=== PATIENT | female | born 1945 | race Caucasian/White ===

== ENCOUNTER → 2017-04-01 | Outpatient (CLI) | payer BC, OTHER ==
[~2017-04-01] MED LIST: BIOTPOW17 PO; CALC-51 PO; CHOL100010 PO; CINNAMON PO; COEN50CA12 PO; MAGN500C PEG; NXM/40 PO; VENL150C56 PO; VITAMIN B PO
[2017-04-01 12:49] LABS: BASO % 0.9 %; BASO ABS # 0.08 K/uL (0-0.2); COMPLETE YES; EOS % 5.9 %; HEMATOCRIT 41.8 % (37-47); IG% 0.1 %; LYMPH % 41.4 %; LYMPH ABS # 3.52 K/uL (1.2-3.4); MEAN CELL VOLUME 88.6 fL (80-100); MEAN CORPUSCULAR HGB CONC 32.8 g/dl (32-36); MEAN PLATELET VOLUME 9.8 fL (7.4-10.4); MONO % 5.9 %; NEUT % 45.8 %; PLATELET COUNT 350 K/uL (130-400); RED BLOOD COUNT 4.72 M/uL (4.2-5.4); WHITE BLOOD COUNT 8.51 K/uL (4.8-10.8)
[2017-04-01 13:17] LABS: ESTIMATED AVERAGE GLUCOSE 151 mg/dl; HA1C FLAG Normal (Normal)
[2017-04-01 14:59] LABS: CALCIUM 10.2 mg/dl (8.5-10.1)
[2017-04-01 15:07] LABS: ALT/SGPT 40 U/L (12-78); AST/SGOT 26 U/L (15-37); BLOOD UREA NITROGEN 11 mg/dl (7-18); BUN/CREATININE RATIO 12.6 (10-20); CARBON DIOXIDE 28 mmol/L (21-32); CHLORIDE 105 mmol/L (98-107); CHOLESTEROL 209 mg/dl (0-200); CREATININE 0.87 mg/dl (0.60-1.20); GLUCOSE 144 mg/dl (70-99); POTASSIUM 4.4 mmol/L (3.5-5.1); SODIUM 141 mmol/L (136-145); TRIGLYCERIDES 97 mg/dl (0-150); VERY LOW DENSITY LIPOPROT CALC 19 mg/dl
[2017-04-01 15:10] LABS: ALB/GLOB RATIO 0.9 (0.9-2); ALKALINE PHOSPHATASE 109 U/L (45-117); CHOLESTEROL/HDL RATIO 3.1; HDL CHOLESTEROL 67 mg/dl
== END | disposition home or self-care (01) ==
LOC: C.LABSPEC 12:26
PROVIDERS: ATTEND Internal Medicine
DX: E78.5 Hyperlipidemia, unspecified (principal); R53.83 Other fatigue; E11.9 Type 2 diabetes mellitus without complications

== ENCOUNTER → 2017-07-01 | Outpatient (CLI) | payer BC, OTHER ==
--- NOTE | 2017-07-02 15:59 | MAMMOGRAPHY REPORT ---
BILATERAL DIGITAL SCREENING MAMMOGRAM WITH CAD: 07/01/2017 CLINICAL HISTORY: Routine screening. Patient has no complaints. TECHNIQUE: Bilateral CC and MLO views were obtained. Current study was also evaluated with a Comput er Aided Detection (CAD) system. COMPARISON: Comparison is made to exams dated: 05/10/2015 mammogram, 05/16/2014 mammogram, 04/28/2014 joseph mogram, 04/26/2013 mammogram, 04/23/2012 mammogram - [facility], and 04/25/2009. BREAST COMPOSITION: There are scattered areas of fibroglandular density in both breasts. FINDINGS: A focal asymmetry in the right upper outer quadrant is stable on all available prior mammog ricardo dating back to at least 04/19/2009, therefore likely benign. No new suspicious mass, architectu ral distortion or cluster of microcalcifications is seen. IMPRESSION: ACR BI-RADS CATEGORY 1: NEGATIVE There is no mammographic evidence of malignancy. A 1 year screening mammogram is recommended. The pa tient will receive written notification of the results. Approximately 10% of breast cancers are not detected with mammography. A negative mammographic report should not delay biopsy if a clinically suggestive mass is present. Una Crum M.D. ay/:07/01/2017 15:51:57 Preventive Maintenance Coordinator: Randi LEE)(Ernesto)(BD), [facility] letter sent: Normal 1/2 BI-RADS Code: ACR BI-RADS Category 1: Negative
== END | disposition home or self-care (01) ==
LOC: C.MAMM 10:53
PROVIDERS: ATTEND Internal Medicine
DX: Z12.31 Encounter for screening mammogram for malignant neoplasm of breast (principal)

== ENCOUNTER → 2017-10-17 | Outpatient (CLI) | payer BC, OTHER ==
[2017-10-17 13:05] LABS: CREATININE RANDOM URINE 32.9 mg/dl
== END | disposition home or self-care (01) ==
LOC: C.LABSPEC 12:11
PROVIDERS: ATTEND Internal Medicine
DX: E11.9 Type 2 diabetes mellitus without complications (principal)

== ENCOUNTER → 2018-03-30 | Outpatient (CLI) | payer BC, OTHER | END | disposition home or self-care (01) | LOC: C.LABSPEC 17:13 | PROVIDERS: ATTEND Internal Medicine | DX: N39.0 Urinary tract infection, site not specified (principal) ==

== ENCOUNTER → 2018-07-02 | Outpatient (CLI) | payer BC, OTHER ==
--- NOTE | 2018-07-03 14:30 | MAMMOGRAPHY REPORT ---
BILATERAL DIGITAL SCREENING MAMMOGRAM TOMOSYNTHESIS WITH CAD: 07/02/2018 CLINICAL HISTORY: Routine screening. Patient has no complaints. TECHNIQUE: Breast tomosynthesis in addition to standard 2D mammography was performed. Current study w as also evaluated with a Computer Aided Detection (CAD) system. COMPARISON: Comparison is made to exams dated: 07/01/2017 mammogram, 05/10/2015 mammogram, 05/16/2014 joseph mogram, 04/28/2014 mammogram, 04/26/2013 mammogram, and 04/23/2012 mammogram - [facility]. BREAST COMPOSITION: There are scattered areas of fibroglandular density in both breasts. FINDINGS: No suspicious masses, calcifications, or areas of architectural distortion are noted in either breast . There has been no significant interval change compared to prior exams. IMPRESSION: ACR BI-RADS CATEGORY 1: NEGATIVE There is no mammographic evidence of malignancy. A 1 year screening mammogram is recommended.( 019) The patient will receive written notification of the results. Some breast cancers are not detected with mammography. A negative mammographic report should not nii y biopsy if a clinically suggestive mass is present. Julia Miller M.D. ah/:07/02/2018 15:47:36 Can Vacuum Tester: RT Sarah(R)(M)(BD), [facility] letter sent: Normal 1/2 BI-RADS Code: ACR BI-RADS Category 1: Negative
== END | disposition home or self-care (01) ==
LOC: C.MAMM 13:48
PROVIDERS: ATTEND Internal Medicine
DX: Z12.31 Encounter for screening mammogram for malignant neoplasm of breast (principal)

== ENCOUNTER 2023-09-22 18:55 | Observation (INO) ==
--- NOTE | 2023-09-22 19:02 | ED Triage Note ---
Date of Service September 22, 2023 History of Present Illness This patient was briefly evaluated while in triage. An abbreviated physical exam was performed. This patient is a 78-year-old Female who presents to the ED for evaluation of chest pain. Since 3pm today she has had acid reflux and history of similar. However, took some rollaids today and notes continuation of symptoms. Notes the pain will come and go. While driving here noted pain in L arm. Currenty wearing a heart monitor noting hx of "silent stroke". Went to [place] about 3 weeks ago. No fever, cough, dyspnea. COVID infection in April of this year. Physical Exam GENERAL: 78 year old female. In no acute distress. SKIN: No lesions or rashes. HEART: Regular rate and rhythm. LUNGS: Clear to auscultation. ABDOMEN: Bowel sounds normoactive. No guarding or rigidity. No tenderness of pal pation. NEURO: Alert and oriented. No deficits. MUSCULOSKELETAL: No deformities to inspection of the extremities. PSYCH: Patient is pleasant and answers all questions appropriately. Initial orders for labs and / or imaging were placed and patient was placed in the waiting area until a bed is available. Please see further documentation for the full ED course.
[2023-09-22 19:31] LABS: Basophils # (auto) 0.09 K/uL (0.00-0.20); Eosinophils # (auto) 0.45 K/uL (0.00-0.50); Eosinophils % (auto) 4.8 %; Hematocrit (blood only) 41.3 % (37.0-47.0); Hemoglobin 13.7 g/dl (12.0-16.0); Immature Granulocytes # (auto) 0.03 K/uL (0.01-0.20); Immature Granulocytes % (auto) 0.3 %; Lymphocytes # (auto) 3.82 K/uL (1.20-3.40); Lymphocytes % (auto) 40.8 %; Mean Corpuscular Hemoglobin 29.3 pg (25.0-34.0); Mean Corpuscular Hgb Conc 33.2 g/dL (32.0-36.0); Mean Corpuscular Volume 88.2 fL (80.0-100.0); Mean Platelet Volume 9.4 fL (9.4-12.4); Monocytes # (auto) 0.66 K/uL (0.11-0.59); Neutrophils # (auto) 4.32 K/uL (1.40-6.50); Neutrophils % (auto) 46.1 %; Platelet Count 326 K/uL (130-400); RDW Coefficient of Variation 13.2 % (11.5-14.5); RDW Standard Deviation 42.6 fL (36.4-46.3); Red Blood Count 4.68 M/uL (4.20-5.40); White Blood Count 9.37 K/ul (4.8-10.8)
[2023-09-22 19:46] LABS: Albumin Globulin Ratio 1.4 (0.9-2); BUN Creatinine Ratio 15.5 (10-20); Bilirubin,Total 0.5 mg/dl (0.2-1.0); Calcium 10.1 mg/dl (8.6-10.3); Creatinine Clr Calc Pharmacy 50.8 ml/min; Est GFR (African American) 77.2 ml/min; Est GFR (Non-African American) 66.6 ml/min; Globulin 2.8 gm/dl (2.5-4.0); Magnesium 1.7 mg/dl (1.7-2.4); Potassium 3.5 mmol/L (3.5-5.1); Total Protein 6.8 gm/dl (6.0-8.3)
[2023-09-22 19:53] LABS: Troponin I High Sensitivity 4.1 pg/ml (0-14)
[2023-09-22 20:02] LABS: Thyroid Stimulating Hormone 2.549 uIu/ml (0.300-4.500)
[2023-09-22 20:15] LABS: Partial Thromboplastin Time 28.8 Seconds (21.0-31.0); Prothrombin Time 10.7 Seconds (9.0-12.0)
[2023-09-22] MEDS ORDERED: ALUMINUM/MAGNESIUM SUSP 30 ML UDC PO STA (21:20)
[2023-09-22] MEDS ORDERED: NITROGLYCERIN SL 0.4 MG/TAB TAB SL STA (22:29)
[2023-09-22] MEDS ORDERED: ASPIRIN CHEW 324 MG PO STA (22:29)
[2023-09-22] MEDS ORDERED: SODIUM CHLORIDE 0.9% 1,000 ML IV SCH (22:30)
--- NOTE | 2023-09-22 22:38 | Emergency Department Note ---
History of Present Illness General Chief Complaint: Chest Pain Stated Complaint: ACID REFLEX, PAIN LT ARM, CHEST PAIN Time Seen by Provider: 09/22/23 21:01 History of Present Illness Provider Complaint: chest pain Onset (ago): day(s) 1 Duration: intermittent Onset: during rest Pain Location: substernal and epigastric Pain Radiation: LUE Severity: mild Maximum Pain Intensity: 3 Current Pain Intensity: 3 Quality: + aching and + dull Relieved By: + nothing Exacerbated By: + nothing Context: no recent illness, no recent surgery, no recent immobilization, no recent travel, no trauma/injury or no new medications Associated symptoms: no nausea, no vomiting, no diaphoresis, no dyspnea, no palpitations, no fever or no cough Home Medications Medication Instructions Recorded Confirmed Type bupropion HCl 200 mg tablet,12 hr 200 mg PO QAM 04/30/23 09/22/23 History sustained-release metformin 500 mg tablet,extended 1,000 mg (2 x 500 mg) PO DAILY 90 05/08/23 09/22/23 Rx release 24 hr days #180 tabs rosuvastatin 5 mg tablet (Crestor) 5 mg PO DAILY 30 days #90 tabs 06/09/23 09/22/23 Rx esomeprazole magnesium 40 mg 40 mg PO DAILY #90 caps 07/23/23 09/22/23 Rx capsule,delayed release (Nexium) metoprolol tartrate 25 mg tablet 25 mg PO BID #90 tabs 08/25/23 09/22/23 Rx Allergies Allergy/AdvReac Type Severity Reaction Status Date / Time ketorolac Allergy Severe SHORTNESS Verified 06/02/23 13:57 OF BREATH Past Med/Surg History Medical History Type 2 diabetes mellitus with obesity Dyslipidemia Osteopenia COVID-19 HTN (hypertension) Mild depression Rosacea Surgical History No pertinent past surgical history Social History Smoking Status: Never smoker Second Hand Exposure: No; Do You Dip or Chew Tobacco: No; Hx Alcohol Use: Yes Alcohol Intake Frequency: Monthly or Less Hx Substance Use: No Preferred Language: Georgian marital status: marital status details: 58 Years Current Living Situation: Spouse current occupational status: retired How many Children do You have: 2 How many Children do You have Comment: 1 child is Feels Safe at Home: Yes Childhood Exposure to Second-Hand Smoke: Yes Diet: low carbohydrate and regular caffeine: Yes Dental Care, Regularly: Yes Physical Activity Frequency: Daily Physical Activity Frequency Comment: Walks. Has not been to the [facility] since beginning of Covid Seatbelt Use: always Sunscreen Use: Yes (Avoids sunlight, patient has rosacea ) Assistive Devices: Glasses Physical Exam Vital Signs Vital Signs - 24 hr 09/22/23 18:59 09/22/23 21:10 09/22/23 21:36 Temperature 36.4 C L Temperature Source Temporal Artery Scan Pulse Rate 71 68 Pulse Rate [Apical] Pulse Rhythm [Apical] Pulse Strength [Apical] Respiratory Rate 16 Respiratory Effort / Characteristics Respiratory Depth Blood Pressure 211/105 H Blood Pressure [Right Arm] Blood Pressure Mean 140 Blood Pressure Mean [Right Arm] Blood Pressure Position [Right Arm] Pulse Oximetry 98 97 Oxygen Delivery Method Room Air Room Air Sepsis Recent Fever Within 48 Hours No Sepsis New/Unexplained Change in Mental Status No Sepsis Action Taken by Nursing No Action Required 09/22/23 21:37 09/22/23 23:06 Temperature Temperature Source Pulse Rate Pulse Rate [Apical] 66 66 Pulse Rhythm [Apical] Regular Pulse Strength [Apical] Normal Respiratory Rate 18 16 Respiratory Effort / Characteristics Non-Labored Spontaneous Respiratory Depth Normal Blood Pressure Blood Pressure [Right Arm] 194/94 H 158/83 H Blood Pressure Mean Blood Pressure Mean [Right Arm] 127 108 Blood Pressure Position [Right Arm] Sitting Sitting Pulse Oximetry 98 95 Oxygen Delivery Method Room Air Room Air Sepsis Recent Fever Within 48 Hours Sepsis New/Unexplained Change in Mental Status Sepsis Action Taken by Nursing Physical Exam GENERAL: oriented to person, place, and time. appears well-developed and well- nourished. HENT: Exam performed. - Head: Normocephalic and atraumatic. EYES: Conjunctivae and EOM are normal. Right eye exhibits no discharge. Left eye exhibits no discharge. No scleral icterus. NECK: Normal range of motion. Neck supple. No JVD present. CV: Normal rate, regular rhythm, normal heart sounds and intact distal pulses. There is no peripheral edema. Palpable radial pulses bue. PULM/CHEST: Effort normal and breath sounds normal. No respiratory distress. No stridor. no wheezes. no rales. ABD: The abdomen is soft. There is no tenderness. NEURO: Motor and sensation grossly intact. SKIN: Skin is warm and dry. He is not diaphoretic. PSYCH: normal mood and affect. Behavior is normal. Judgment and thought content normal. Course Course 2100: The patient was evaluated in room B3. A complete history and physical exam was performed Cardiac monitoring: An order was placed for continuous cardiac monitoring. The monitor shows a rate of 70 with sinus rhythm interpreted by me Patient was seen during a time of extreme volume and extreme acuity. Nursing triage protocols were initiated labs and imaging was conducted by protocol in the triage area. Labs and imaging within normal limits. Patient was offered inpatient observation but declined. We will conduct delta troponin and if negative plan on discharge with outpatient follow-up. Patient is agreement with this plan. 2253: Vital signs stable. Delta troponin negative. On reassessment the patient is reporting increasing chest pain that comes and goes. Given the patient's symptoms are not any better the patient will be admitted for chest pain rule out ACS. Repeat EKG negative. Patient treated with aspirin and nitroglycerin. [facility] will be [facility]. Administered Medications Sodium Chloride (Nss) 1,000 mls @ 125 mls/hr IV .Q8H FRANCESCA Stop: 10/22/23 22:29 Last Admin: 09/22/23 22:39 Dose: 125 mls/hr Documented By: QGV Discontinued Medications Al Hydrox/Mg Hydrox/Simethicone (Aluminum/Magnesium Susp 30 Ml Udc) 15 ml PO NOW STA Stop: 09/22/23 21:21 Last Admin: 09/22/23 21:33 Dose: 15 ml Documented By: QGV Aspirin (Aspirin Chew 324 Mg) 324 mg PO NOW STA Stop: 09/22/23 22:30 Last Admin: 09/22/23 22:38 Dose: 324 mg Documented By: QGV Nitroglycerin (Nitroglycerin Sl 0.4 Mg/Tab Tab) 0.4 mg SL NOW STA Stop: 09/22/23 22:30 Last Admin: 09/22/23 22:37 Dose: 0.4 mg Documented By: QGV Medical Decision Making Laboratory Data Attestation: I reviewed the patient's lab results. 09/22/23 19:12 09/22/23 19:12 Labs: Lab Results 09/22/23 09/22/23 09/23/23 Range/Units 19:12 21:31 Unknown WBC 9.37 (4.8-10.8) K/ul RBC 4.68 (4.20-5.40) M/uL Hgb 13.7 (12.0-16.0) g/dl Hct 41.3 (37.0-47.0) % MCV 88.2 (80.0-100.0) fL MCH 29.3 (25.0-34.0) pg MCHC 33.2 (32.0-36.0) g/dL RDW Std Deviation 42.6 (36.4-46.3) fL RDW Coeff of Emily 13.2 (11.5-14.5) % Plt Count 326 (130-400) K/uL MPV 9.4 (9.4-12.4) fL Immature Gran % (Auto) 0.3 % Neut % (Auto) 46.1 % Lymph % (Auto) 40.8 % [place] % (Auto) 7.0 % Eos % (Auto) 4.8 % Baso % (Auto) 1.0 % Neut # (Auto) 4.32 (1.40-6.50) K/uL Lymph # (Auto) 3.82 H (1.20-3.40) K/uL [place] # (Auto) 0.66 H (0.11-0.59) K/uL Eos # (Auto) 0.45 (0.00-0.50) K/uL Baso # (Auto) 0.09 (0.00-0.20) K/uL Immature Gran # (Auto) 0.03 (0.01-0.20) K/uL PT 10.7 (9.0-12.0) Seconds INR 1.0 (0.9-1.1) APTT 28.8 (21.0-31.0) Seconds PTT Ratio 1.0 Sodium 139 (136-145) mmol/L Potassium 3.5 (3.5-5.1) mmol/L Chloride 102 (98-107) mmol/L Carbon Dioxide 30 (21-32) mmol/L Anion Gap 7 (3-11) BUN 13 (6-23) mg/dl Creatinine 0.84 (0.6-1.2) mg/dl Est Cr Clr Drug Dosing 50.8 ml/min Est GFR ( Amer) 77.2 ml/min Est GFR (Non-Af Amer) 66.6 ml/min BUN/Creatinine Ratio 15.5 (10-20) Glucose 128 H (70-99(Fasting)) mg/dl Calcium 10.1 (8.6-10.3) mg/dl Magnesium 1.7 (1.7-2.4) mg/dl Total Bilirubin 0.5 (0.2-1.0) mg/dl AST 20 (13-39) U/L ALT 19 (7-52) U/L Alkaline Phosphatase 105 H (34-104) U/L Troponin I High Sens 4.1 3.6 (0-14) pg/ml Total Protein 6.8 (6.0-8.3) gm/dl Albumin 4.0 (3.4-5.0) gm/dl Globulin 2.8 (2.5-4.0) gm/dl Albumin/Globulin Ratio 1.4 (0.9-2) Lipase 26 (11-82) U/L TSH 2.549 (0.300-4.500) uIu/ml Urine Color Yellow Urine Appearance Clear (Clear) Urine pH 7.5 (4.5-7.5) Ur Specific [place] 1.009 (1.000-1.030) Urine Protein Negative (Negative) Urine Glucose (UA) Negative (Negative) Urine Ketones Negative (Negative) Urine Blood Negative (Negative) Urine Nitrite Negative (Negative) Urine Bilirubin Negative (Negative) Urine Urobilinogen Negative (Negative) Ur Leukocyte Esterase 1+ H (Negative) Urine WBC (Auto) 1-5 (0-5) /hpf Urine RBC (Auto) 0-4 (0-4) /hpf U Hyaline Cast (Auto) 0 (0-5) /lpf U Epithel Cells (Auto) 5-10 H (0-5) /lpf Urine Bacteria (Auto) Negative (Negative) Imaging Data Chest x-ray: Attestation: I personally reviewed and interpreted this imaging study as follows: My impression: Chest x-ray negative. Airway clear. No pneumothorax. No consolidation. No cardiomegaly or cephalization.. No free air under the diaphragm. No fractures of the skeletal structures. Holter monitor in place. ECG Data Attestation: I personally reviewed and interpreted this ECG as follows: Additional Comments: EKG #1 at 1910: Sinus rhythm with a rate of 67. MD QRS and QTc intervals within normal limits. No ST elevation or ST depression. EKG #2 at 2243: Sinus rhythm with a rate of 71. MD QRS and QTc intervals within normal limits. No ST elevation or ST depression. [facility] Narrative 2100: The patient was evaluated in room B3. A complete history and physical exam was performed Cardiac monitoring: An order was placed for continuous cardiac monitoring. The monitor shows a rate of 70 with sinus rhythm interpreted by me Patient was seen during a time of extreme volume and extreme acuity. Nursing triage protocols were initiated labs and imaging was conducted by protocol in the triage area. Labs and imaging within normal limits. Patient was offered inpatient observation but declined. We will conduct delta troponin and if negative plan on discharge with outpatient follow-up. Patient is agreement with this plan. 2252: Vital signs stable. Delta troponin negative. On reassessment the patient is reporting increasing chest pain that comes and goes. Given the patient's symptoms are not any better the patient will be admitted for chest pain rule out ACS. Repeat EKG negative. Patient treated with aspirin and nitroglycerin. Patient will be admitted to the [facility] hospitalist team Dr. Squires's team will be notified. Impression & Plan Chest pain Discharge Plan Visit Data Chief Complaint: Chest Pain Stated Complaint: ACID REFLEX, PAIN LT ARM, CHEST PAIN ED Provider: Jimbo Stephens Discharge Problem: Chest pain Patient Disposition: Being Evaluated by Hospitalist Forms Stand Alone Forms: My [facility] Prescriptions Prescriptions: No Action metformin 500 mg tablet extended release 24 hr 1,000 mg PO DAILY 90 Days Qty: 180 2RF rosuvastatin [Crestor] 5 mg tablet 5 mg PO DAILY 30 Days Qty: 90 3RF esomeprazole magnesium [Nexium] 40 mg capsule,delayed release(DR/EC) 40 mg PO DAILY Qty: 90 3RF metoprolol tartrate 25 mg tablet 25 mg PO BID Qty: 90 1RF bupropion HCl 200 mg tablet sustained-release 12 hr 200 mg PO QAM Referrals Referrals: Michelle Rojas MD [Primary Care Provider] - Discharge Problem: Chest pain Qualifiers: Chest pain type: unspecified Qualified Code(s): R07.9 - Chest pain, unspecified
--- NOTE | 2023-09-22 23:35 | History & Physical Report ---
Date of Service September 22, 2023 Assessment & Plan (1) Chest pain: Plan: 78-year-old female with history of diabetes, hypertension hyperlipidemia presenting with episodic epigastric discomfort and chest discomfort. Troponin x2 is negative, EKG with no acute ischemic changes. Given patient's history as well as description of complaints, suspect GI origin of her symptoms. Observation to medical with telemetry Repeat troponin every 6 hours x2 Protonix 40 mg p.o. daily We will start sucralfate 1 g p.o. q. ACHS (2) HTN (hypertension): Plan: Blood pressure mildly elevated Continue metoprolol 25 mg p.o. twice daily Continue to monitor (3) Type 2 diabetes mellitus with obesity: Plan: Chronic. Stable. We will continue metformin 1 g p.o. daily (4) Depression: Plan: Chronic. Stable. Continue bupropion 200 mg p.o. every morning (5) Dyslipidemia: Plan: Chronic. Stable. Continue Crestor 5 mg p.o. daily History of Present Illness Chief Complaint: chest pain Primary Care Provider: Michelle Rojas MD Kamla Mendez is a pleasant 78yo female with history of DM, HTN and HLP presenting with chest discomfort. Patient has a longstanding history of reflux for which she takes antacids as needed as well as Nexium. Around 15:00 she developed reflux symptoms. She took some antacids and her Nexium with no relief. Throughout the day, the symptoms continued to worsen. She developed severe pain in the epigastric area as well as discomfort down the left arm and into the back. Her pain was severe, 10/10, intermittent. No associated SOB, diaphoresis, nausea or dizziness. Pain is not positional or pleuritic. Non- exertional. She ate lunch out with friends today and had some fried hush puppies and a mildly spicy sauce which was slightly out of the ordinary for her. No additional complaints at this time. Patient does report occasional diarrhea as well as occasional nausea and vomiting. Allergies Allergy/AdvReac Type Severity Reaction Status Date / Time ketorolac Allergy Severe SHORTNESS Verified 06/02/23 13:57 OF BREATH Home Medications Medication Instructions Recorded Confirmed Type bupropion HCl 200 mg tablet,12 hr 200 mg PO QAM 04/30/23 09/22/23 History sustained-release metformin 500 mg tablet,extended 1,000 mg (2 x 500 mg) PO DAILY 90 05/08/23 09/22/23 Rx release 24 hr days #180 tabs rosuvastatin 5 mg tablet (Crestor) 5 mg PO DAILY 30 days #90 tabs 06/09/23 09/22/23 Rx esomeprazole magnesium 40 mg 40 mg PO DAILY #90 caps 07/23/23 09/22/23 Rx capsule,delayed release (Nexium) metoprolol tartrate 25 mg tablet 25 mg PO BID #90 tabs 08/25/23 09/22/23 Rx Past Med/Surg History Medical History (Updated 09/23/23 @ 04:12 by Zunilda Squires DO) Type 2 diabetes mellitus with obesity Dyslipidemia Osteopenia COVID-19 HTN (hypertension) Mild depression Rosacea Surgical History No pertinent past surgical history Social History Smoking Status: Never smoker Second Hand Exposure: No; Do You Dip or Chew Tobacco: No; Hx Alcohol Use: Yes Alcohol Intake Frequency: Monthly or Less Hx Substance Use: No Preferred Language: Welsh marital status: marital status details: 58 Years Current Living Situation: Spouse current occupational status: retired How many Children do You have: 2 How many Children do You have Comment: 1 child is Feels Safe at Home: Yes Childhood Exposure to Second-Hand Smoke: Yes Diet: low carbohydrate and regular caffeine: Yes Dental Care, Regularly: Yes Physical Activity Frequency: Daily Physical Activity Frequency Comment: Walks. Has not been to the [facility] since beginning of Cov Seatbelt Use: always Sunscreen Use: Yes (Avoids sunlight, patient has rosacea ) Assistive Devices: Glasses Review of Systems Review of Systems: All systems reviewed & are unremarkable except as noted in HPI & below Physical Exam Physical Exam: General: patient resting comfortably, NAD, non-toxic in appearance, AA&O x 4 Skin: warm, dry, intact, no rashes or lesions HEENT: NC/AT, PERRL, EOMI, anicteric sclera, conjunctiva without injection, external ear normal to inspection and nontender, nares patent, moist mucus membranes, dentition intact, no oropharyngeal lesions, neck supple, trachea midline, no LAD, no thyromegaly, no JVD Heart: +S1/S2, regular, no m/r/g Lungs: equal air entry bilaterally, no rales/rhonchi/wheezes Abd: +BS, soft, NT/ND, no masses/organomegaly/ascites, some discomfort with palpation of the epigastric region, no rebound/guarding Ext: warm, 2+ pulses in UE/LE bilaterally, no clubbing/cyanosis or edema Neuro: nonfocal, patient AA&O x 4, speech intact, no facial droop, moving all extremities on command with equal strength 5/5 Results & Data Results & Data Vital Signs (Past 12 Hours) Vital Signs Temp Pulse Pulse Resp BP BP Pulse Ox 09/22/23 23:06 66 16 158/83 H 95 09/22/23 21:37 66 18 194/94 H 98 09/22/23 21:36 68 09/22/23 21:10 97 09/22/23 18:59 36.4 C L 71 16 211/105 H 98 O2 Del Method 09/22/23 23:06 Room Air 09/22/23 21:37 Room Air 09/22/23 21:36 09/22/23 21:10 Room Air 09/22/23 18:59 Room Air Laboratory Results Laboratory Results WBC 9.37 K/ul (4.8-10.8) 09/22/23 19:12 RBC 4.68 M/uL (4.20-5.40) 09/22/23 19:12 Hgb 13.7 g/dl (12.0-16.0) 09/22/23 19:12 Hct 41.3 % (37.0-47.0) 09/22/23 19:12 MCV 88.2 fL (80.0-100.0) 09/22/23 19:12 MCH 29.3 pg (25.0-34.0) 09/22/23 19:12 MCHC 33.2 g/dL (32.0-36.0) 09/22/23 19:12 RDW Std Deviation 42.6 fL (36.4-46.3) 09/22/23 19:12 RDW Coeff of Emily 13.2 % (11.5-14.5) 09/22/23 19:12 Plt Count 326 K/uL (130-400) 09/22/23 19:12 MPV 9.4 fL (9.4-12.4) 09/22/23 19:12 Immature Gran % (Auto) 0.3 % 09/22/23 19:12 Neut % (Auto) 46.1 % 09/22/23 19:12 Lymph % (Auto) 40.8 % 09/22/23 19:12 [place] % (Auto) 7.0 % 09/22/23 19:12 Eos % (Auto) 4.8 % 09/22/23 19:12 Baso % (Auto) 1.0 % 09/22/23 19:12 Neut # (Auto) 4.32 K/uL (1.40-6.50) 09/22/23 19:12 Lymph # (Auto) 3.82 K/uL (1.20-3.40) H 09/22/23 19:12 [place] # (Auto) 0.66 K/uL (0.11-0.59) H 09/22/23 19:12 Eos # (Auto) 0.45 K/uL (0.00-0.50) 09/22/23 19:12 Baso # (Auto) 0.09 K/uL (0.00-0.20) 09/22/23 19:12 Immature Gran # (Auto) 0.03 K/uL (0.01-0.20) 09/22/23 19:12 PT 10.7 Seconds (9.0-12.0) 09/22/23 19:12 INR 1.0 (0.9-1.1) 09/22/23 19:12 APTT 28.8 Seconds (21.0-31.0) 09/22/23 19:12 PTT Ratio 1.0 09/22/23 19:12 Sodium 139 mmol/L (136-145) 09/22/23 19:12 Potassium 3.5 mmol/L (3.5-5.1) 09/22/23 19:12 Chloride 102 mmol/L (98-107) 09/22/23 19:12 Carbon Dioxide 30 mmol/L (21-32) 09/22/23 19:12 Anion Gap 7 (3-11) 09/22/23 19:12 BUN 13 mg/dl (6-23) 09/22/23 19:12 Creatinine 0.84 mg/dl (0.6-1.2) 09/22/23 19:12 Est Cr Clr Drug Dosing 50.8 ml/min 09/22/23 19:12 Est GFR ( Amer) 77.2 ml/min 09/22/23 19:12 Est GFR (Non-Af Amer) 66.6 ml/min 09/22/23 19:12 BUN/Creatinine Ratio 15.5 (10-20) 09/22/23 19:12 Glucose 128 mg/dl (70-99(Fasting)) H 09/22/23 19:12 Calcium 10.1 mg/dl (8.6-10.3) 09/22/23 19:12 Magnesium 1.7 mg/dl (1.7-2.4) 09/22/23 19:12 Total Bilirubin 0.5 mg/dl (0.2-1.0) 09/22/23 19:12 AST 20 U/L (13-39) 09/22/23 19:12 ALT 19 U/L (7-52) 09/22/23 19:12 Alkaline Phosphatase 105 U/L (34-104) H 09/22/23 19:12 Troponin I High Sens 3.6 pg/ml (0-14) 09/22/23 21:31 Total Protein 6.8 gm/dl (6.0-8.3) 09/22/23 19:12 Albumin 4.0 gm/dl (3.4-5.0) 09/22/23 19:12 Globulin 2.8 gm/dl (2.5-4.0) 09/22/23 19:12 Albumin/Globulin Ratio 1.4 (0.9-2) 09/22/23 19:12 Lipase 26 U/L (11-82) 09/22/23 19:12 TSH 2.549 uIu/ml (0.300-4.500) 09/22/23 19:12 Urine Color Yellow 09/23/23 Unknown Urine Appearance Clear (Clear) 09/23/23 Unknown Urine pH 7.5 (4.5-7.5) 09/23/23 Unknown Ur Specific [place] 1.009 (1.000-1.030) 09/23/23 Unknown Urine Protein Negative (Negative) 09/23/23 Unknown Urine Glucose (UA) Negative (Negative) 09/23/23 Unknown Urine Ketones Negative (Negative) 09/23/23 Unknown Urine Blood Negative (Negative) 09/23/23 Unknown Urine Nitrite Negative (Negative) 09/23/23 Unknown Urine Bilirubin Negative (Negative) 09/23/23 Unknown Urine Urobilinogen Negative (Negative) 09/23/23 Unknown Ur Leukocyte Esterase 1+ (Negative) H 09/23/23 Unknown Urine WBC (Auto) 1-5 /hpf (0-5) 09/23/23 Unknown Urine RBC (Auto) 0-4 /hpf (0-4) 09/23/23 Unknown U Hyaline Cast (Auto) 0 /lpf (0-5) 09/23/23 Unknown U Epithel Cells (Auto) 5-10 /lpf (0-5) H 09/23/23 Unknown Urine Bacteria (Auto) Negative (Negative) 09/23/23 Unknown Diagnostic Findings Chest x-rayper my interpretation, patient with loop recorder in place. Gastric bubble. No edema or infiltrate ECG Additional Comments: EKGper my interpretation. Study reveals normal sinus rhythm at 67 bpm, AR = 182, QRS = 88, QTc = 412, no acute ischemic changes. No change when compared with prior study Code Status & VTE Plan VTE Prophylaxis Plan VTE Prophylaxis will be ordered: Yes PG Care Time/CCT Total # of Minutes Spent Total Time Spent with Patient: Total time spent is greater than 50% in coordination of care (as documented) at patient's floor/unit and/or counseling patient: Coding Level of Care Code 12651 INT INP/OBS CARE 2/55MIN Diagnoses Chest pain R07.9 Chest pain type: unspecified HTN (hypertension) I10 Type 2 diabetes mellitus with obesity E11.69; E66.9 Depression F32.A Dyslipidemia E78.5 (1) Chest pain Chest pain type: unspecified Qualified Code(s): R07.9 - Chest pain, unspecified
[2023-09-23 00:52] LABS: Appearance Urine Clear (Clear); Bacteria Urine Automated Negative (Negative); Bilirubin Urine Negative (Negative); Blood Urine Negative (Negative); Cast Urine Automated 0 /lpf (0-5); Color Urine Yellow; Glucose Urine UA Negative (Negative); Ketones Urine Negative (Negative); Leukocyte Esterase Urine 1+ (Negative); Nitrite Urine Negative (Negative); Protein Urine Negative (Negative); RBC Urine Automated 0-4 /hpf (0-4); Specific Gravity Urine 1.009 (1.000-1.030); Urobilinogen Urine Negative (Negative); pH Urine 7.5 (4.5-7.5)
[2023-09-23] MEDS ORDERED: ACETAMINOPHEN 325 MG TAB PO PRN (01:34)
[2023-09-23] MEDS ORDERED: ONDANSETRON INJ 2 MG/ML 2 ML VIAL IV PRN (01:34)
[2023-09-23 04:30] LABS: Hematocrit (blood only) 37.8 % (37.0-47.0); Hemoglobin 12.7 g/dl (12.0-16.0); Mean Corpuscular Hemoglobin 29.5 pg (25.0-34.0); Mean Corpuscular Hgb Conc 33.6 g/dL (32.0-36.0); Mean Corpuscular Volume 87.7 fL (80.0-100.0); Mean Platelet Volume 9.7 fL (9.4-12.4); Platelet Count 296 K/uL (130-400); RDW Coefficient of Variation 13.2 % (11.5-14.5); RDW Standard Deviation 42.6 fL (36.4-46.3); Red Blood Count 4.31 M/uL (4.20-5.40); White Blood Count 10.31 K/ul (4.8-10.8)
[2023-09-23 04:46] LABS: Albumin Level 3.6 gm/dl (3.4-5.0); BUN Creatinine Ratio 13.6 (10-20); Bilirubin Direct 0.1 mg/dl (0-0.2); Bilirubin,Total 0.4 mg/dl (0.2-1.0); Calcium 9.5 mg/dl (8.6-10.3); Creatinine Clr Calc Pharmacy 48.5 ml/min; Est GFR (African American) 72.9 ml/min; Est GFR (Non-African American) 62.9 ml/min; Potassium 4.2 mmol/L (3.5-5.1)
[2023-09-23 04:51] LABS: Troponin I High Sensitivity 4.6 pg/ml (0-14)
--- NOTE | 2023-09-23 07:22 | XRay Report ---
XR chest 1V portable HISTORY: 78 years-old Female Chest pain acute chest pain COMPARISON: CTA chest 05/02/2023 TECHNIQUE: PA view of the chest FINDINGS: Cardiac silhouette is enlarged. Linear areas of subsegmental atelectasis versus scarring. Battery pac k projects over the left chest. No pneumothorax, pleural effusion or overt pulmonary edema. Cholecyst ectomy. Bones appear grossly intact. IMPRESSION: No acute process. ACT 112: Negative or not required by law. The above report was generated using voice recognition software. It may contain grammatical, syntax o r spelling errors. Electronically signed by: Asif Sánchez M.D. 09/23/2023 7:21 AM
[2023-09-23] MEDS: SUCRALFATE 1 GM/10 ML UDC PO SCH ×2 (07:57→12:57)
[2023-09-23] MEDS: ROSUVASTATIN CALCIUM 5 MG TAB PO SCH ×2 (07:57→08:07)
[2023-09-23] MEDS ORDERED: METOPROLOL TARTRATE 25 MG TAB PO SCH (09:00)
[2023-09-23] MEDS ORDERED: PANTOprazole 40 MG TAB PO SCH (09:00)
[2023-09-23] MEDS ORDERED: buPROPion SR 100 MG TABCR PO SCH (09:00)
[2023-09-23] MEDS ORDERED: metFORMIN HCL ER 500 MG TABCR PO SCH (09:00)
--- NOTE | 2023-09-23 10:17 | Electrocardiogram Report ---
Test Reason : Blood Pressure : / mmHG Vent. Rate : 067 BPM Atrial Rate : 067 BPM P-R Int : 182 ms QRS Dur : 088 ms QT Int : 390 ms P-R-T Axes : 053 -03 043 degrees QTc Int : 412 ms Normal sinus rhythm Poor R wave progression, consider anterior PR vs. lead placement vs. LVH Abnormal ECG When compared with ECG of 02-MAY-2023 11:50, No significant change was found Confirmed by Bib Steen ([id number]) on 09/23/2023 10:17:19 AM Referred By: REFERRED SELF Confirmed By:Bib Steen
--- NOTE | 2023-09-23 10:18 | Electrocardiogram Report ---
Test Reason : Blood Pressure : / mmHG Vent. Rate : 071 BPM Atrial Rate : 071 BPM P-R Int : 184 ms QRS Dur : 086 ms QT Int : 402 ms P-R-T Axes : 049 -03 045 degrees QTc Int : 436 ms Normal sinus rhythm Poor R wave progression, consider anterior TN vs. lead placement vs. LVH Abnormal ECG When compared with ECG of 22-SEP-2023 19:10, No significant change was found Confirmed by Bib Steen ([id number]) on 09/23/2023 10:17:39 AM Referred By: REFERRED SELF Confirmed By:Bib Steen
--- NOTE | 2023-09-23 11:36 | XCELERA ---
[id number]
--- NOTE | 2023-09-23 12:32 | Discharge Summary ---
Date of Service September 23, 2023 Admission HPI Per Admitting Provider Kamla Mendez is a pleasant 78yo female with history of DM, HTN and HLP presenting with chest discomfort. Patient has a longstanding history of reflux for which she takes antacids as needed as well as Nexium. Around 15:00 she developed reflux symptoms. She took some antacids and her Nexium with no relief. Throughout the day, the symptoms continued to worsen. She developed severe pain in the epigastric area as well as discomfort down the left arm and into the back. Her pain was severe, 10/10, intermittent. No associated SOB, diaphoresis, nausea or dizziness. Pain is not positional or pleuritic. Non- exertional. She ate lunch out with friends today and had some fried hush puppies and a mildly spicy sauce which was slightly out of the ordinary for her. No additional complaints at this time. Patient does report occasional diarrhea as well as occasional nausea and vomiting. Principal Diagnosis Noncardiac chest pain Discharge Exam General-alert and oriented x3, no fevers, no chills HEENT-head atraumatic and normocephalic, pupils equal and reactive to light, extraocular muscles intact Neck-no lymphadenopathy or thyromegaly, trachea midline Chest-clear to auscultation percussion. No rales wheezing or rhonchi Cardiac-regular rate and rhythm, normal S1 and S2 Abdomen-normal bowel sounds, nontender, no hepatosplenomegaly Extremities-no cyanosis, clubbing, or edema Neuro-cranial nerves II through XII intact, motor and sensory function within normal limits, strength symmetrical, no focal deficits Psych-normal affect, normal mood Discharge Data Allergies Allergy/AdvReac Type Severity Reaction Status Date / Time ketorolac Allergy Severe SHORTNESS Verified 06/02/23 13:57 OF BREATH Consultations 09/22/23 22:31 ED Decision to Admit Stat Hospital Course (1) Chest pain: Resolved. Troponin series negative. No acute EKG changes. Cardiac echo negative for regional wall motion abnormalities. This appears to be noncardiac chest pain, probably of esophageal origin. (2) HTN (hypertension): Stable. Continue metoprolol (3) Type 2 diabetes mellitus with obesity: ADA diet. Continue metformin. Sliding scale coverage as needed (4) Depression: Stable. Continue bupropion (5) Dyslipidemia: Stable. Continue statin therapy Plan Home today, September 23 Total Time Total Time Spent Total Time Spent (In Minutes): 40 minutes Discharge Plan Discharge Items Patient Disposition: Home - Self-Care Reason For Visit: CHEST PAIN Discharge Diagnosis: Noncardiac chest pain Activity: Resume your previous activity Non-emergency contact: Primary Care Provider Call non-emergency contact if: your symptoms worsen Follow-up/Referrals: Michelle Rojas MD [Primary Care Provider] - Diet: Carb Consistent or DM2 and Heart Healthy Addtl Attending Provider Instructions: No new medications at this time. Primary care provider will schedule outpatient stress testing at a later date Pending Studies at Discharge: No Stand-Alone Forms: My [facility] [employer], Smoking Cessation Medications and DC Order Prescriptions: New aspirin 81 mg tablet,delayed release (DR/EC) 81 mg PO DAILY Qty: 1 0RF Continued metformin 500 mg tablet extended release 24 hr 1,000 mg PO DAILY 90 Days Qty: 180 2RF rosuvastatin [Crestor] 5 mg tablet 5 mg PO DAILY 30 Days Qty: 90 3RF esomeprazole magnesium [Nexium] 40 mg capsule,delayed release(DR/EC) 40 mg PO DAILY Qty: 90 3RF metoprolol tartrate 25 mg tablet 25 mg PO BID Qty: 90 1RF bupropion HCl 200 mg tablet sustained-release 12 hr 200 mg PO QAM Discharge Orders: Discharge Order (Routine); Ordered 09/23/23 Ordered By: Fabian Stokes Admission Data Admit Date/Time: 09/22/23 23:34 Attending Provider: Zunilda Squires Admit Provider: Zunilda Squires Primary Care Provider: Michelle Rojas Other Providers: Zunilda Squires Coding Level of Care Code 17506 INP/OBS DISCH >30 MIN Diagnoses Chest pain R07.9 Chest pain type: unspecified HTN (hypertension) I10 Type 2 diabetes mellitus with obesity E11.69; E66.9 Depression F32.A Dyslipidemia E78.5
== END 2023-09-23 13:20 | disposition home or self-care (01) ==
LOC: ED 18:55 → EDINP 18:55